=== PATIENT | female | born 1960 | race Caucasian/White ===

== ENCOUNTER 2020-02-15 10:50 | Outpatient (CLI) | payer OTHER, SELFPAY ==
--- NOTE | ~2020-02-15 | US_ITS ---
EXAMINATION: US abdomen complete DATE: 02/15/2020 11:56 INDICATION: Abdominal pain. TECHNIQUE: Multiple grayscale and Doppler ultrasound images of the abdomen were obtained. COMPARISON: CT abdomen and pelvis 08/07/2015 FINDINGS: Abdominal aorta is normal in caliber. Inferior vena cava is normal. The visualized portions of the head, body, and tail of the pancreas are normal. The liver is normal without focal lesion. Th ere is normal flow in main portal vein. The gallbladder is normal in size. No gallstones or gallbladd er wall thickening. There was no sonographic Liriano sign. The kidneys are normal in size. The spleen is normal in size. IMPRESSION: 1. Normal complete abdomen ultrasound. Reviewed, dictated and finalized at location A.
--- NOTE | ~2020-02-15 | XR_ITS ---
XR cervical spine 4-5V 02/15/2020 11:32 Indication: Neck pain Procedure: 4 view cervical spine Comparison: 08/07/2015 Findings: There is straightening of cervical lordosis. There is mild disc narrowing at C5-6 and C6-7. There are small marginal osteophytes. There is an uncinate hypertrophy at C4-5, C5-6 and C6-7. Odont oid process within normal limits. No prevertebral soft tissue swelling. Impression: 1: Mild-moderate cervical spondylosis. Reviewed, dictated and finalized at location B. Impression: 1: Mild-moderate cervical spondylosis.
== END 2020-02-15 10:51 ==
PROVIDERS: PCP Chiropractor; Visit Provider Chiropractor
DX: R10.9 Unspecified abdominal pain (principal); M47.892 Other spondylosis, cervical region
CPT/HCPCS: 72050; 76700